=== PATIENT | female | born 1970 | race Two or more races ===

== ENCOUNTER 2019-10-29 23:54 | Emergency (ER) | payer SELFPAY ==
[~2019-10-29] VITALS: Ht 165.1 cm; Wt 76.0 kg
[2019-10-30] MEDS ORDERED: ASPIRIN 81MG TABLET PO ONE (00:30)
[2019-10-30 01:00] LABS: BASOPHILS % 0.2 % (0.0-2.0); EOSINOPHILS % 1.6 % (0.0-5.0); HEMATOCRIT. 37.1 % (36.0-48.0); HEMOGLOBIN. 12.5 g/dL (12.0-16.0); LYMPHOCYTES % 22.2 % (20.0-50.0); MEAN CORPUSCULAR HEMOGLOBIN 27.7 pg (28.0-32.0); MEAN CORPUSCULAR VOLUME 82.2 fL (81.0-99.0); MEAN PLATELET VOLUME 7.2 fl (7.4-10.4); MONOCYTES % 4.3 % (2.0-8.0); NEUTROPHILS % 71.7 % (40.0-76.0); PLATELET 226 x1000/uL (130-400); RED BLOOD CELL COUNT 4.51 mill/uL (4.2-5.4); RED CELL DISTRIBUTION WIDTH 14.3 % (11.6-14.6)
[2019-10-30 01:08] LABS: CHLORIDE 105 mEq/L (98-107)
[2019-10-30 01:17] LABS: CREATINE KINASE 128 IU/L (26-192)
[2019-10-30 01:20] LABS: INR 0.9; PROTHROMBIN TIME 10.2 sec (9.6-11.0)
[2019-10-30 02:45] VITALS: BP 114/63
== END 2019-10-30 02:44 | disposition home or self-care (01) ==
LOC: ER 23:54
DX: R07.89 Other chest pain (principal)
CPT/HCPCS: 36415; 71045; 80053; 82550; 83690; 83880; 84484; 85025; 85610; 93005; 99285; Z7610